=== PATIENT | male | born 1975 | race Caucasian/White ===

== ENCOUNTER 2017-07-13 15:35 | Emergency (ER) | payer BC ==
--- NOTE | 2017-07-13 16:15 | EDM.PDOC ---
ED HPI GENERAL MEDICAL PROBLEM - General Chief Complaint: Skin Complaint Stated Complaint: PT HAS SOME KIND OF INFECTION IN RT HAND Time Seen by Provider: 07/13/17 15:36 Source of Information: Reports: Patient History Limitations: Reports: No Limitations - History of Present Illness INITIAL COMMENTS - FREE TEXT/NARRATIVE: HISTORY AND PHYSICAL: History of present illness: Patient is a 42-year-old male who presents to the emergency room today requesting medication refill. 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 Was seeing a seam checker while in [place] who had prescribed the medication regiment. He had planned to do skin punch biopsies; but moved here for work. States he is out of medication and unable to follow-up with a seam checker for further refills. He denies any fever, chills, chest pain or shortness of breath. Denies any abdominal pain, nausea, vomiting, diarrhea or constipation Review of systems: As per history of present illness and below otherwise all systems reviewed and negative. Past medical history: As per history of present illness and as reviewed below otherwise noncontributory. Surgical history: As per history of present illness and as reviewed below otherwise noncontributory. Social history: No reported history of drug or alcohol abuse. Family history: As per history of present illness and as reviewed below otherwise noncontributory. Physical exam: General: Well-developed and well-nourished 42-year-old male. Alert and oriented. Nontoxic appearing and in no acute distress. HEENT: Atraumatic, normocephalic, pupils equal and reactive bilaterally, negative for conjunctival pallor or scleral icterus, mucous membranes moist, throat clear, neck supple, nontender, trachea midline. No drooling or trismus noted. No meningeal signs Lungs: Clear to auscultation, breath sounds equal bilaterally, chest nontender. Heart: S1S2, regular rate and rhythm without overt murmur Abdomen: Soft, nondistended, nontender. Negative for masses or hepatosplenomegaly. Negative for costovertebral tenderness. Pelvis: Stable nontender. Genitourinary: Deferred. Rectal: Deferred. Skin: Excessively dry flaking skin to the soles of bilateral feet and palmar surface of bilateral hands. Appears plaque-like similar to psoriasis. Otherwise skin is intact, warm, dry. No lesions or rashes noted. Extremities: Atraumatic, negative for cords or calf pain. Neurovascular unremarkable. Neuro: Awake, alert, oriented. Cranial nerves II through XII unremarkable. Cerebellum unremarkable. Motor and sensory unremarkable throughout. Exam nonfocal. Notes: We'll refill his prednisone by mouth and cortisone topical cream. Encouraged him to follow-up at our primary care for further medication refill and set that appointment with dermatology. Diagnostics: Declines Therapeutics: [] Impression: Dermatitis Plan: 1. Please the medications as prescribed. May apply a thick emollient cream 2. Follow-up with a primary care provider for further evaluation and management. Set up/arrange for you to see a seam checker as we discussed. 3. Return to the ED as needed and as discussed. Definitive disposition and diagnosis as appropriate pending reevaluation and review of above. Left Head Pain Score (Numeric/FACES): 2 - Related Data Allergies Allergy/AdvReac Type Severity Reaction Status Date / Time No Known Allergies Allergy Verified 07/13/17 15:52 Home Meds: Home Meds . [No Known Home Meds] 07/13/17 [History] Past Medical History Dermatologic History: Reports: Other (See Below) Other Dermatologic History: peeling skin on hands and feet. - Infectious Disease History Infectious Disease History: Reports: Other (See Below) Other Infectious Disease History: valley fever Social & Family History - Family History Family Medical History: Noncontributory - Tobacco Use Smoking Status *Q: Never Smoker - Caffeine Use Caffeine Use: Reports: Energy Drinks, Soda - Recreational Drug Use Recreational Drug Use: Yes Recreational Drug Type: Reports: Marijuana/Hashish ED ROS GENERAL - Review of Systems Review Of Systems: ROS reveals no pertinent complaints other than HPI. ED EXAM, SKIN/RASH Exam: See Below (See dictation) Course - Vital Signs Last Recorded V/S: Last Vital Signs Temp 97.3 F 07/13/17 15:49 Pulse 91 07/13/17 15:49 Resp 18 07/13/17 15:49 BP 132/63 07/13/17 15:49 Pulse Ox 98 07/13/17 15:49 Departure - Departure Time of Disposition: 16:15 Disposition: Home, Self-Care 01 Clinical Impression: Dermatitis - Discharge Information Instructions: Atopic Dermatitis Referrals: PCP,None [Primary Care Provider] - Additional Instructions: The following information is given to patients seen in the emergency department who are being discharged to home. This information is to outline your options for follow-up care. We provide all patients seen in our emergency department with a follow-up referral. The need for follow-up, as well as the timing and circumstances, are variable depending upon the specifics of your emergency department visit. If you don't have a primary care physician on staff, we will provide you with a referral. We always advise you to contact your personal physician following an emergency department visit to inform them of the circumstance of the visit and for follow-up with them and/or the need for any referrals to a consulting specialist. The emergency department will also refer you to a specialist when appropriate. This referral assures that you have the opportunity for follow-up care with a specialist. All of these measure are taken in an effort to provide you with optimal care, which includes your follow-up. Under all circumstances we always encourage you to contact your private physician who remains a resource for coordinating your care. When calling for follow-up care, please make the office aware that this follow-up is from your recent emergency room visit. If for any reason you are refused follow-up, please contact the [facility] Emergency Department at and asked to speak to the emergency department charge nurse. [facility] [address] [place] [id number] 1. Please the medications as prescribed. May apply a thick emollient cream like Eucerin with gloves over night. 2. Follow-up with a primary care provider for further evaluation and management. Set up/arrange for you to see a seam checker as we discussed. 3. Return to the ED as needed and as discussed.
== END 2017-07-13 16:25 | disposition home or self-care (01) ==
LOC: MW.ED 15:35
DX: L30.9 Dermatitis, unspecified (principal)
CPT/HCPCS: 99282; 99283

== ENCOUNTER 2019-03-21 18:36 | Emergency (ER) | payer BC, MEDICAID ==
[2019-03-21 19:46] LABS: BLOOD UREA NITROGEN,BUN 8 mg/dL (7.0-18.0); CARBON DIOXIDE,CO2 26.3 mmol/L (21.0-32.0); CHLORIDE,CL 104 mmol/L (98-107); GLUCOSE RANDOM 90 mg/dL (74-106); POTASSIUM,K 4.1 mmol/L (3.5-5.1); SODIUM,NA 144 mmol/L (136-148)
[2019-03-21 20:08] LABS: ACETAMINOPHEN <2.0 ug/mL
--- NOTE | 2019-03-21 20:33 | EDM.PDOC ---
ED HPI GENERAL MEDICAL PROBLEM - General Chief Complaint: Behavioral/Psych Stated Complaint: MED CLEARANCE Time Seen by Provider: 03/21/19 19:06 - History of Present Illness INITIAL COMMENTS - FREE TEXT/NARRATIVE: HPI 43-year-old male presents and law enforcement custody due to SI in the setting of heavy drinking today. Patient is minimal historian but notes ongoing depression, long-standing suicidal ideation, alludes to (but will not further elaborate on) a plan. Denies HI, auditory or visual hallucinations, or drug use. Patient has not seen a mental health provider previously for his suicidal ideation or depression. Patient reports as a trigger/stressor that he lost the child 14 years ago and that he is or estranged from his was custody of his children and [place]. M/S/F/SocHx notable for: ; remainder reviewed with patient and in chart. ROS: Negative constitutional, eye, cardiovascular, pulmonary, GI, , MSK, skin , neurologic, psychiatric, endocrine unless noted in the HPI. Exam HR 132, RR 20, BP 148/116, T 36.6C, SaO2 95% on room air. Gen: Pleasant, nontoxic-appearing, resting comfortably. HEENT: normocephalic, atraumatic, PEERL, EOMI. Resp: clear to auscultation bilaterally, unlabored respirations with a normal work of breathing Card: regular rate and rhythm GI: non-tender, non-distended. MSK: No visible deformities, strength and tone within normal limits. Skin: Normal color with no visible lesions. Neuro: alert and oriented 3, no facial asymmetry, mildly slurring speech. Psych: depressed mood and flat affect. Labs / Imaging (pertinent): WBC 11.17, HB 17.8, sodium 144, potassium 4.1, chloride 104, carbon dioxide 26.3 , albumin 4.2, AST 33, ALT 63, TSH 1.35, EtOH 340, acetaminophen < 2.0, salicylates 1.5. UDS negative. UA - negative nitrate, negative leukocyte esterase, rare bacteria. EKG: SR at BPM, QRS msec, QTc msec, no ST-segment elevations or depressions, T-wave inversions or new LBBB. MDM Previous chart, nursing note, and vitals reviewed. A: 43-year-old male presents and law enforcement custody due to SI in the setting of heavy drinking today. DDx: suicidal ideation, suicidal gesture, depression, overdose, intoxication, infectious process, thyroid, electrolyte or hematologic abnormalities. Medical evaluation: History and exam without evidence of current toxidrome or infectious process. Salicylate is WNL and acetaminophen is below detection, the patient's anion gap is within normal limits and their alcohol level is elevated , however the patient is alert, oriented, and with capacity. TSH is within normal limits. UDS negative. CBC and BMP were reviewed and were within normal limits. There appear to be no current medical processes affecting the patient's suicidal ideation. Suicidal evaluation: patient felt to be moderate-high risk for suicide. Disposition: patient is in law enforcement custody, and upon completion of medical screening, was transported to the [facility] correctional facility, law enforcement states that the patient will be taken for mental health care tomorrow morning. Impression: EtOH intoxication, suicidal ideation. - Related Data Allergies Allergy/AdvReac Type Severity Reaction Status Date / Time No Known Allergies Allergy Verified 07/13/17 15:52 Home Meds: Home Meds . [Unable to Verify Home Med List] 03/21/19 [History] Past Medical History Cardiovascular History: Reports: Hypertension Psychiatric History: Reports: Depression Dermatologic History: Reports: Other (See Below) Other Dermatologic History: peeling skin on hands and feet. - Infectious Disease History Infectious Disease History: Reports: Other (See Below) Other Infectious Disease History: valley fever Social & Family History - Family History Family Medical History: Noncontributory - Tobacco Use Smoking Status *Q: Current Every Day Smoker Years of Tobacco use: 27 Packs/Tins Daily: 1 - Caffeine Use Caffeine Use: Reports: Energy Drinks, Soda - Recreational Drug Use Recreational Drug Use: No ED ROS GENERAL - Review of Systems Review Of Systems: See Below ED EXAM, GENERAL - Physical Exam Exam: See Below Course - Vital Signs Last Recorded V/S: Last Vital Signs Temp 36.6 C 03/21/19 18:49 Pulse 132 H 03/21/19 18:49 Resp 20 03/21/19 18:49 BP 148/116 H 03/21/19 18:49 Pulse Ox 95 03/21/19 18:49 - Orders/Labs/Meds Orders: Active Orders 24 hr Category Date Time Status Communication Order [RC] STAT Care 03/21/19 20:31 Ordered EKG Documentation Completion [RC] STAT Care 03/21/19 18:53 Active Labs: Laboratory Tests 03/21/19 03/21/19 03/21/19 Range/Units 18:57 18:57 19:07 WBC 11.17 H (4.0-11.0) K/uL RBC 6.09 H (4.50-5.90) M/uL Hgb 17.8 H (13.0-17.0) g/dL Hct 51.4 H (38.0-50.0) % MCV 84.4 (80.0-98.0) fL MCH 29.2 (27.0-32.0) pg MCHC 34.6 (31.0-37.0) g/dL RDW Std Deviation 43.4 (28.0-62.0) fl RDW Coeff of Pretty 14 (11.0-15.0) % Plt Count 190 (150-400) K/uL MPV 8.50 (7.40-12.00) fL Neut % (Auto) 48.6 (48.0-80.0) % Lymph % (Auto) 40.6 H (16.0-40.0) % [place] % (Auto) 7.3 (0.0-15.0) % Eos % (Auto) 3.2 (0.0-7.0) % Baso % (Auto) 0.3 (0.0-1.5) % Neut # (Auto) 5.4 (1.4-5.7) K/uL Lymph # (Auto) 4.5 H (0.6-2.4) K/uL [place] # (Auto) 0.8 (0.0-0.8) K/uL Eos # (Auto) 0.4 (0.0-0.7) K/uL Baso # (Auto) 0.0 (0.0-0.1) K/uL Nucleated RBC % 0.0 /100WBC Nucleated RBCs # 0 K/uL Sodium (136-148) mmol/L Potassium (3.5-5.1) mmol/L Chloride (98-107) mmol/L Carbon Dioxide (21.0-32.0) mmol/L BUN (7.0-18.0) mg/dL Creatinine (0.8-1.3) mg/dL Est Cr Clr Drug Dosing mL/min Estimated GFR (MDRD) ml/min Glucose (74-106) mg/dL Calcium (8.5-10.1) mg/dL Magnesium (1.8-2.4) mg/dL Total Bilirubin (0.2-1.0) mg/dL AST (15-37) IU/L ALT (14-63) IU/L Alkaline Phosphatase (46-116) U/L Total Protein (6.4-8.2) g/dL Albumin (3.4-5.0) g/dL Globulin (2.6-4.0) g/dL Albumin/Globulin Ratio (0.9-1.6) TSH 3rd Generation (0.36-3.74) uIU/mL Urine Color YELLOW Urine Appearance CLEAR Urine pH 6.0 (5.0-8.0) Ur Specific [place] 1.015 (1.001-1.035) Urine Protein 30 H (NEGATIVE) mg/dL Urine Glucose (UA) NEGATIVE (NEGATIVE) mg/dL Urine Ketones NEGATIVE (NEGATIVE) mg/dL Urine Occult Blood SMALL H (NEGATIVE) Urine Nitrite NEGATIVE (NEGATIVE) Urine Bilirubin NEGATIVE (NEGATIVE) Urine Urobilinogen 0.2 (<2.0) EU/dL Ur Leukocyte Esterase NEGATIVE (NEGATIVE) Urine RBC 0-2 (0-2/HPF) Urine WBC 0-2 (0-5/HPF) Ur Epithelial Cells OCCASIONAL (NONE-FEW) Urine Bacteria RARE (NEGATIVE) Urine Mucus MODERATE (NONE-MOD) Salicylates (0-20) mg/dL Urine Opiates Screen NEGATIVE (NEGATIVE) Ur Oxycodone Screen NEGATIVE (NEGATIVE) Urine Methadone Screen NEGATIVE (NEGATIVE) Acetaminophen ug/mL Ur Barbiturates Screen NEGATIVE (NEGATIVE) Ur Phencyclidine Scrn NEGATIVE (NEGATIVE) Ur Amphetamine Screen NEGATIVE (NEGATIVE) U Methamphetamines Scrn NEGATIVE (NEGATIVE) U Benzodiazepines Scrn NEGATIVE (NEGATIVE) U Cocaine Metab Screen NEGATIVE (NEGATIVE) U Marijuana (THC) Screen NEGATIVE (NEGATIVE) Ethyl Alcohol mg/dL 03/21/19 Range/Units 19:07 WBC (4.0-11.0) K/uL RBC (4.50-5.90) M/uL Hgb (13.0-17.0) g/dL Hct (38.0-50.0) % MCV (80.0-98.0) fL MCH (27.0-32.0) pg MCHC (31.0-37.0) g/dL RDW Std Deviation (28.0-62.0) fl RDW Coeff of Pretty (11.0-15.0) % Plt Count (150-400) K/uL MPV (7.40-12.00) fL Neut % (Auto) (48.0-80.0) % Lymph % (Auto) (16.0-40.0) % [place] % (Auto) (0.0-15.0) % Eos % (Auto) (0.0-7.0) % Baso % (Auto) (0.0-1.5) % Neut # (Auto) (1.4-5.7) K/uL Lymph # (Auto) (0.6-2.4) K/uL [place] # (Auto) (0.0-0.8) K/uL Eos # (Auto) (0.0-0.7) K/uL Baso # (Auto) (0.0-0.1) K/uL Nucleated RBC % /100WBC Nucleated RBCs # K/uL Sodium 144 (136-148) mmol/L Potassium 4.1 (3.5-5.1) mmol/L Chloride 104 (98-107) mmol/L Carbon Dioxide 26.3 (21.0-32.0) mmol/L BUN 8 (7.0-18.0) mg/dL Creatinine 1.0 (0.8-1.3) mg/dL Est Cr Clr Drug Dosing 103.54 mL/min Estimated GFR (MDRD) > 60.0 ml/min Glucose 90 (74-106) mg/dL Calcium 9.2 (8.5-10.1) mg/dL Magnesium 1.9 (1.8-2.4) mg/dL Total Bilirubin 0.3 (0.2-1.0) mg/dL AST 33 (15-37) IU/L ALT 63 (14-63) IU/L Alkaline Phosphatase 92 (46-116) U/L Total Protein 8.2 (6.4-8.2) g/dL Albumin 4.2 (3.4-5.0) g/dL Globulin 4.0 (2.6-4.0) g/dL Albumin/Globulin Ratio 1.0 (0.9-1.6) TSH 3rd Generation 1.35 (0.36-3.74) uIU/mL Urine Color Urine Appearance Urine pH (5.0-8.0) Ur Specific [place] (1.001-1.035) Urine Protein (NEGATIVE) mg/dL Urine Glucose (UA) (NEGATIVE) mg/dL Urine Ketones (NEGATIVE) mg/dL Urine Occult Blood (NEGATIVE) Urine Nitrite (NEGATIVE) Urine Bilirubin (NEGATIVE) Urine Urobilinogen (<2.0) EU/dL Ur Leukocyte Esterase (NEGATIVE) Urine RBC (0-2/HPF) Urine WBC (0-5/HPF) Ur Epithelial Cells (NONE-FEW) Urine Bacteria (NEGATIVE) Urine Mucus (NONE-MOD) Salicylates 1.5 (0-20) mg/dL Urine Opiates Screen (NEGATIVE) Ur Oxycodone Screen (NEGATIVE) Urine Methadone Screen (NEGATIVE) Acetaminophen <2.0 ug/mL Ur Barbiturates Screen (NEGATIVE) Ur Phencyclidine Scrn (NEGATIVE) Ur Amphetamine Screen (NEGATIVE) U Methamphetamines Scrn (NEGATIVE) U Benzodiazepines Scrn (NEGATIVE) U Cocaine Metab Screen (NEGATIVE) U Marijuana (THC) Screen (NEGATIVE) Ethyl Alcohol 340 mg/dL Departure - Departure Time of Disposition: 20:32 Disposition: Refer to Observation Clinical Impression: Alcohol abuse, Suicidal ideation - Discharge Information Referrals: PCP,Unknown [Primary Care Provider] - Additional Instructions: You were in seen in the [facility] Emergency Department for evaluation of suicidal ideation in the setting of alcohol consumption. Please do not drink any further alcohol. Please follow up immediately with both the mental health care provider and your primary care physician for further care as appropriate. Please read and follow all of the instructions below. When calling for follow-up care, please make the office aware that this follow- up is from your recent emergency room visit. If for any reason you are refused follow-up, please contact the [facility] Emergency Department at and asked to speak to the emergency department charge nurse. Your care today was limited to identifying and treating emergent medical problems only. Many people have subtle differences in their test results that require follow up with their outpatient physician(s) to correctly determine if this represents a normal variation or concerning abnormality with respect to your specific health. The care given to you today was limited to identifying and treating emergent medical problems - you need to request a copy of all of your medical records from today's visit and follow up with your outpatient physician(s) to review both today's visit and your overall health. If you have any new symptoms or if you are at all concerned about your health please return immediately to the emergency department. Prescriptions: If you are uninsured or have financial difficulties with filling your prescription(s), you may consider using a free pharmacy discount service such as [employer] ([employer]) or [employer] ([employer]). These services allow you to search for a medication on your phone (or computer) and obtain a coupon that usually has a significant discount from the list durant at a pharmacy. Your physician as well as [facility] does not have a financial relationship with either of these services. You may also wish to speak with your physician to determine if lower cost prescriptions are possible. Obtaining primary care: 1. [facility] provides pediatrics (children), family medicine (children, adults, and some obstetrical care), and internal medicine (adults). Further specialty care is also available. Same day appointments are available. They may be contacted at [phone] and are open Thursday through Thursday 8 AM to 5 PM. The [facility] are located at [facility], [address] [place] [address] 58. 2. [facility] offers family medicine, internal medicine, womens health, and further specialty care. [facility] may be contacted at [phone]. [facility] is located at [address] [place], [place] [id number]. 3. If you have health insurance, please also contact your insurer for a list of accepting providers under your policy, you may contact these providers for further health care. Occupational health: Work related injuries may consider following up with [facility], . Occupational health services are located at [address] [place] [id number] and are open Thursday through Thursday from 7: 30 am to 5:00 pm. Obstetrical and Gynecological Care: [facility], , Thursday through Thursday 8 AM to 5 PM. [address] [place] [address]. Eyecare: If you have an eye injury you should follow up with your drum sander offbearer or with [facility], at [phone] or [phone] , they are located at [address] [place] [address]. Dental Care Bruno Azevedo DDS. [address] [facility].[place], [place]. Ph. [phone] Bobby Azevedo DDS MS. [address] [facility] [address], [place], [place]. Ph. Maximilian Chambers DDS. 10 02/[address] [place] [address]. Ph. [phone] Farhan Ferguson DDS. [address] [facility] [address] [place], [place]. Ph. [phone] Ian Swift DDS PC. [address] [facility] [address] [place], [place]. Ph. [phone] Micky Denny DDS. [address] [facility]. Ph. [phone] [facility]. [address] [place], [place]. Ph. [phone] [facility]. [address] [place] [address], [place], [place]. Ph. [phone] [facility] [address] [place] [phone]. Ph. [facility]. [address] [place] [address] [address] [place], [place]. Ph. [facility]. [address] [place], [place]. Ph. [phone] Information about Suicidal Thinking and/or Behavior If you or someone you love is at risk of suicide, it is important to get help. Call: National Suicide Hotline: . Your mental health professional Get help right away if you or someone: threatens to hurt or kill him/herself Talks of wanting to hurt or kill him/herself Looks for ways to kill him/herself such as with firearms, pills, or other ways to do harm. Suddenly begins to talk or write about , dying, or suicide. Know other signs that require help quickly: Feels hopeless Feels rage, uncontrolled anger, or seeks revenge Acts reckless or takes part in risky behaviors without thinking Feels like there is no way out Increases use of alcohol or drugs Withdraws from friends, family and society Becomes anxious, agitated, unable to sleep or sleeps all the time Has a big change in mood Feels there is no reason to live; no sense of purpose in life Important Information to be aware of: The risk of suicide may increase during a scheduled time away from the hospital or after leaving the hospital. The risk is greatest in the month after leaving the hospital. Take your medicine the way your doctor told you. Never make medicine changes without talking to your treating psychiatrist/medical doctor. Remember many people return to the hospital because they stopped taking their medicine or made medicine changes without talking to their doctor. Keep all psychotherapy appointments and follow your treatment plan. Recovery needs a good treatment plan, which may include medicine, attending support groups and having support from family and/or friends. Major Depressive Disorder (MDD) is the psychiatric diagnosis most commonly linked to someone who commits suicide. If you or someone you know has been diagnosed with MDD, you/they may not be about to think clearly. They may believe the world (and especially their family) is better off without them; they may think the only solution is suicide. Avoid taking any kind of alcohol or drugs. Suicide rates increase with drug and alcohol use. Remove any items from the home that could be used for suicide. Remove firearms, medicines, weapons, ropes, etc. Remember: Firearms are the most common method of suicide by all groups (young, old, white, non-white, male, female). How you can help someone who is suicidal: Be aware of their behavior and learn the warning signs of suicide. Get involved. Be available to show interest and support. Ask if he/she is thinking about suicide. Listen. Allow them to express their feelings. Accept their feelings. Do not assistant purchasing manager them. Do not discuss or argue about suicide being right or wrong. Do not lecture them on the value of life. Never dare someone to commit suicide. Do not give advice. Do not ask "why"; this can cause them to become defensive. Offer understanding; not sympathy. Do not act shocked, this can cause them to withdraw from you. Remember: Many people think about suicide at some time in their life. Offer hope. Let them know there are other ways to solve a problem. Take action. Remove items that can cause harm. Get help from professionals. Helpful Telephone Numbers: National Suicide Hotline: (6-016-226-TALK) Other Counties: Call your Mental Health Crisis Hotline or call 911. Sepsis Event Note - Evaluation Sepsis Screening Result: No Definite Risk - Focused Exam Vital Signs: Vital Signs Temp Pulse Resp BP Pulse Ox 03/21/19 18:49 36.6 C 132 H 20 148/116 H 95 Date Exam was Performed: 03/21/19 Time Exam was Performed: 20:32 - My Orders Last 24 Hours: My Active Orders 03/21/19 20:31 Communication Order [RC] STAT - Assessment/Plan Last 24 Hours: My Active Orders 03/21/19 20:31 Communication Order [RC] STAT
== END 2019-03-21 20:47 ==
LOC: MW.ED 18:36
DX: F32.9 Major depressive disorder, single episode, unspecified (principal); F10.129 Alcohol abuse with intoxication, unspecified; Y90.8 Blood alcohol level of 240 mg/100 ml or more; F17.210 Nicotine dependence, cigarettes, uncomplicated
CPT/HCPCS: 36415; 80053; 80305-QW; 80307; 81001; 83735; 84443; 85025; 93005; 99284; 99285-25

== ENCOUNTER 2019-04-06 02:29 | Emergency (ER) | payer MEDICAID ==
[2019-04-06] MEDS ORDERED: Aluminum Hydroxide/Magnesium Hydroxide/Simethicone Susp 30 ML Cup ONE (03:02)
[2019-04-06] MEDS ORDERED: Lidocaine 2% Viscous Solution 15 ML Cup ONE (03:02)
[2019-04-06] MEDS ORDERED: Iopamidol 755 MG/ML 200 ML Multipack Bottle IVPUSH ONE (04:17)
[2019-04-06] MEDS ORDERED: Alum Hydrox/Mag Hydrox/Simeth 15 ML, Lidocaine 2% 5 ML PO ONE ×2 (04:23)
[2019-04-06] MEDS ORDERED: Sodium Chloride 0.9% 1,000 ML IV SCH (04:30)
[2019-04-06 04:35] LABS: BLOOD UREA NITROGEN,BUN 6 mg/dL (7.0-18.0); CARBON DIOXIDE,CO2 30.8 mmol/L (21.0-32.0); CHLORIDE,CL 108 mmol/L (98-107); GLUCOSE RANDOM 115 mg/dL (74-106); LIPASE 299 U/L (73-393); POTASSIUM,K 3.6 mmol/L (3.5-5.1); SODIUM,NA 150 mmol/L (136-148)
--- NOTE | 2019-04-06 04:51 | EDM.PDOC ---
ED HPI GENERAL MEDICAL PROBLEM - General Chief Complaint: Abdominal Pain Stated Complaint: ABDOMINAL PAIN Time Seen by Provider: 04/06/19 03:40 Source of Information: Reports: Patient History Limitations: Reports: Intoxication - History of Present Illness INITIAL COMMENTS - FREE TEXT/NARRATIVE: Patient is 43-year-old male with past medical history of Crohn's disease. Patient states he is having abdominal pain and has been having abdominal pain for the past few days. Patient reports self-medicating with alcohol. Patient states he drinks quarter bottle of alcohol prior to arrival in the ER. Patient reports being on prednisone for his Crohn's disease. Patient denies any prior abdominal surgeries. Patient has not had any vomiting or diarrhea. Pmhx: Per HPI Pshx: None Family Hx: noncontributory Smoking history? no Etoh use? Per HPI Drug use? none Review of systems was limited secondary to alcohol intoxication I have reviewed the triage vital signs Const: Smells of alcohol with slurring of speech well nourished, well developed , appears stated age Eyes: PERRL, no conjunctival injection HENT: NCAT, Neck supple without meningismus CV: RRR, Warm, well-perfused extremities RESP: CTAB, Unlabored respiratory effort GI: soft, non-tender, non-distended, no masses MSK: No gross deformities appreciated Skin: Warm, dry. No rashes Neuro: Alert, allergy nurse II-XII grossly intact. Sensation and motor function of extremities grossly intact. Psych: Appropriate mood and affect Assessment and plan: Patient is a 43-year-old male presenting with abdominal pain. Patient's abdomen is soft nontender. Patient's blood test demonstrated a mildly elevated leukocytosis with no other significant abnormality. Patient CT scan did not demonstrate any acute intra-abdominal process. Patient given pain medication with improvement of symptoms. Patient counseled on reducing alcohol consumption and following up on his current disease with primary care physician. All questions were addressed and answered. Patient agrees with plan. Patient given usual abdominal pain discharge return precautions. At time of discharge, patient is clinically sober and able to understand discharge instructions and leave the emergency department. Abdomen Pain Score (Numeric/FACES): 8 - Related Data Allergies Allergy/AdvReac Type Severity Reaction Status Date / Time No Known Allergies Allergy Verified 04/06/19 04:10 Home Meds: Home Meds Sertraline [Zoloft] 1 tab PO DAILY 04/06/19 [History] hydrOXYzine HCL [Atarax] 10 mg PO DAILY 04/06/19 [History] lisinopriL [Lisinopril] 10 mg PO DAILY 04/06/19 [History] predniSONE [Prednisone] 40 mg PO DAILY 04/06/19 [History] Past Medical History HEENT History: Reports: None Cardiovascular History: Reports: Hypertension Respiratory History: Reports: None Gastrointestinal History: Reports: Other (See Below) Other Gastrointestinal History: Crohn's Genitourinary History: Reports: None Musculoskeletal History: Reports: None Neurological History: Reports: None Psychiatric History: Reports: Anxiety, Depression Endocrine/Metabolic History: Reports: None Insulin Pump Model and Machinist Class B: N/A Hematologic History: Reports: None Immunologic History: Reports: None Oncologic (Cancer) History: Reports: None Dermatologic History: Reports: Other (See Below) Other Dermatologic History: peeling skin on hands and feet. - Infectious Disease History Infectious Disease History: Reports: None Other Infectious Disease History: valley fever - Past Surgical History Head Surgeries/Procedures: Reports: None GI Surgical History: Reports: Colostomy Social & Family History - Family History Family Medical History: Noncontributory - Caffeine Use Caffeine Use: Reports: Energy Drinks, Soda - Recreational Drug Use Recreational Drug Use: No ED ROS GENERAL - Review of Systems Review Of Systems: See Below ED EXAM, GI/ABD - Physical Exam Exam: See Below Course - Vital Signs Last Recorded V/S: Last Vital Signs Temp 35.7 C L 04/06/19 02:30 Pulse 106 H 04/06/19 02:30 Resp 18 04/06/19 02:30 BP 151/107 H 04/06/19 02:30 Pulse Ox 98 04/06/19 02:30 - Orders/Labs/Meds Orders: Active Orders 24 hr Category Date Time Status Abdomen Pelvis w Cont [CT] Stat Exams 04/06/19 04:22 Taken Sodium Chloride 0.9% [Normal Saline] 1,000 ml Med 04/06/19 04:30 Active IV ASDIRECTED Medication Orders Sodium Chloride (Normal Saline) 1,000 mls @ 150 mls/hr IV ASDIRECTED KAIT Last Admin: 04/06/19 03:45 Dose: 150 mls/hr Labs: Laboratory Tests 04/06/19 04/06/19 Range/Units 03:05 03:05 WBC 13.05 H (4.0-11.0) K/uL RBC 5.70 (4.50-5.90) M/uL Hgb 16.8 (13.0-17.0) g/dL Hct 49.7 (38.0-50.0) % MCV 87.2 (80.0-98.0) fL MCH 29.5 (27.0-32.0) pg MCHC 33.8 (31.0-37.0) g/dL RDW Std Deviation 47.7 (28.0-62.0) fl RDW Coeff of Pretty 15 (11.0-15.0) % Plt Count 242 (150-400) K/uL MPV 8.70 (7.40-12.00) fL Neut % (Auto) 57.1 (48.0-80.0) % Lymph % (Auto) 34.0 (16.0-40.0) % [place] % (Auto) 7.0 (0.0-15.0) % Eos % (Auto) 1.7 (0.0-7.0) % Baso % (Auto) 0.2 (0.0-1.5) % Neut # (Auto) 7.5 H (1.4-5.7) K/uL Lymph # (Auto) 4.4 H (0.6-2.4) K/uL [place] # (Auto) 0.9 H (0.0-0.8) K/uL Eos # (Auto) 0.2 (0.0-0.7) K/uL Baso # (Auto) 0.0 (0.0-0.1) K/uL Nucleated RBC % 0.0 /100WBC Nucleated RBCs # 0 K/uL Sodium 150 H (136-148) mmol/L Potassium 3.6 (3.5-5.1) mmol/L Chloride 108 H (98-107) mmol/L Carbon Dioxide 30.8 (21.0-32.0) mmol/L BUN 6 L (7.0-18.0) mg/dL Creatinine 0.9 (0.8-1.3) mg/dL Est Cr Clr Drug Dosing 115.04 mL/min Estimated GFR (MDRD) > 60.0 ml/min Glucose 115 H (74-106) mg/dL Calcium 8.2 L (8.5-10.1) mg/dL Total Bilirubin 0.2 (0.2-1.0) mg/dL AST 43 H (15-37) IU/L ALT 75 H (14-63) IU/L Alkaline Phosphatase 109 (46-116) U/L Total Protein 7.8 (6.4-8.2) g/dL Albumin 3.9 (3.4-5.0) g/dL Globulin 3.9 (2.6-4.0) g/dL Albumin/Globulin Ratio 1.0 (0.9-1.6) Lipase 299 (73-393) U/L Meds: Medications Generic Name Dose Route Start Last Admin Trade Name Freq PRN Reason Stop Dose Admin Sodium Chloride 1,000 mls @ 150 mls/hr 04/06/19 04:30 04/06/19 03:45 Normal Saline IV 150 mls/hr ASDIRECTED KAIT Administration Discontinued Medications Generic Name Dose Route Start Last Admin Trade Name Freq PRN Reason Stop Dose Admin Al Hydroxide/Mg Hydroxide 15 0 ml 04/06/19 04:23 04/06/19 03:05 ml/ Lidocaine HCl 5 ml PO 04/06/19 04:24 20 each ONETIME ONE Administration Iopamidol 100 ml 04/06/19 04:17 04/06/19 04:25 Isovue Multipack-370 (76%) IVPUSH 04/06/19 04:18 100 ml ONETIME ONE Administration Departure - Departure Time of Disposition: 05:15 Disposition: Home, Self-Care 01 Clinical Impression: Abdominal pain - Discharge Information Referrals: PCP,None [Primary Care Provider] - Forms: ED Department Discharge Sepsis Event Note - Evaluation Sepsis Screening Result: No Definite Risk - Focused Exam Vital Signs: Vital Signs Temp Pulse Resp BP Pulse Ox 04/06/19 02:30 35.7 C L 106 H 18 151/107 H 98 Date Exam was Performed: 04/06/19 Time Exam was Performed: 05:14 - My Orders Last 24 Hours: My Active Orders 04/06/19 04:22 Abdomen Pelvis w Cont [CT] Stat 04/06/19 04:30 Sodium Chloride 0.9% [Normal Saline] 1,000 ml IV ASDIRECTED - Assessment/Plan Last 24 Hours: My Active Orders 04/06/19 04:22 Abdomen Pelvis w Cont [CT] Stat 04/06/19 04:30 Sodium Chloride 0.9% [Normal Saline] 1,000 ml IV ASDIRECTED
--- NOTE | 2019-04-06 05:14 | CT ---
Indication: Abdominal pain Technique: Contrast enhanced axial CT imaging through the abdomen and pelvis. 100 mL Isovue 370 contrast agent was administered intravenously. Sagittal and coronal reconstructions are provided. Comparison: None Findings: There is no significant abnormality of the liver, gallbladder, spleen, pancreas, adrenal glands, and kidneys. The portal vein and IVC are patent. There is normal caliber of the abdominal aorta. There is no abdominal lymphadenopathy. The stomach and duodenum are unremarkable. There are no abnormally dilated small bowel loops. The appendix is noninflamed. There is no colonic wall thickening. No inflammatory changes are demonstrated in the mesentery. There is no free intraperitoneal fluid or air. Mild degenerative changes are noted in the spine. The included lung bases are clear. Impression: No acute process demonstrated in the abdomen and pelvis. Please note that all CT scans at this facility use dose modulation, iterative reconstruction, and/or weight-based dosing when appropriate to reduce radiation dose to as low as reasonably achievable. Dictated by Yanelis Crabtree MD @ Apr 06 2019 5:02AM Signed by Dr. Yanelis Crabtree @ Apr 06 2019 5:12AM
== END 2019-04-06 05:30 | disposition home or self-care (01) ==
LOC: MW.ED 02:29
DX: R10.9 Unspecified abdominal pain (principal); I10 Essential (primary) hypertension; F41.9 Anxiety disorder, unspecified; F32.9 Major depressive disorder, single episode, unspecified; K50.90 Crohn's disease, unspecified, without complications; Z79.899 Other long term (current) drug therapy
CPT/HCPCS: 36415; 74177; 80053; 83690; 85025; 96360; 96361; 99284; A9270; J7030; Q9967